=== PATIENT | female | born 1970 | race Two or more races ===

== ENCOUNTER → 2022-11-24 | Outpatient (CLI) | payer OTHER ==
--- NOTE | 2022-11-24 14:10 | MM ---
Reason for Exam: Screening (asymptomatic). Last screening mammogram was performed 12 month(s) ago. Patient History: Menarche at age 10. First Full-Term at age 21. Hysterectomy at age 29. Risk Values: Opal 5 year model risk: 0.9%. NCI Lifetime model risk: 8.8%. Prior Study Comparison: 11/26/2020 Bilateral MG 3D screening mammo w/cad, [facility]. 12/10/2021 Bilateral MG 3D screening mammo w/cad, [facility]. Tissue Density: The breast tissue is almost entirely fat. Findings: Analyzed By CAD. There is no suspicious group of microcalcifications or new suspicious mass in either breast. Overall Assessment: Negative, BI-RAD 1 Management: Screening Mammogram of both breasts in 1 year. A clinical breast exam by your physician is recommended on an annual basis and results should be correlated with mammographic findings. [facility] will attempt to contact patient to return for supplemental views and ultrasound if indicated. Electronically signed and approved by: Sina Armas DO
== END | disposition home or self-care (01) ==
LOC: RADMAMWWP 13:13
PROVIDERS: ATTEND Family Medicine
DX: Z12.31 Encounter for screening mammogram for malignant neoplasm of breast (principal)
CPT/HCPCS: 77063; 77067

== ENCOUNTER 2023-02-05 09:25 | Inpatient (IN) | payer OTHER ==
[2023-02-05] MEDS ORDERED: ALBUTEROL HFA INHALER INHALATION STA (09:29)
[2023-02-05] MEDS ORDERED: methylPREDNISolone SOD SUCCI 125 MG/2 ML VIAL IV STA (09:29)
--- NOTE | 2023-02-05 09:35 | ED ---
General Adult HPI - General Chief complaint: Shortness of Breath Stated complaint: dyspnea Time Seen by Provider: 02/05/23 09:29 Source: patient, EMS, RN notes reviewed Mode of arrival: EMS Limitations: no limitations - History of Present Illness Initial comments: Patient is a pleasant 52-year-old female presenting to the emergency department with concern for difficulty breathing. Patient does have history of problems following previous covert infection. Patient has been coughing for months, worse the past 3 days. Patient does feel somewhat more short of breath. Patient does have some discomfort only with deep inspiration. Patient denies chest discomfort otherwise. No leg pain or leg swelling. No fever. - Related Data Allergies Allergy/AdvReac Type Severity Reaction Status Date / Time diphenhydramine Allergy Rash/Hives Verified 02/05/23 09:33 [From Benadryl] Sulfa (Sulfonamide Allergy Swelling Verified 02/05/23 09:33 Antibiotics) Review of Systems ROS Statement: Those systems with pertinent positive or pertinent negative responses have been documented in the HPI. ROS Other: All systems not noted in ROS Statement are negative. Constitutional: Denies: fever Eyes: Denies: eye pain ENT: Denies: ear pain Respiratory: Reports: as per HPI, cough, dyspnea Cardiovascular: Denies: chest pain Endocrine: Denies: fatigue Gastrointestinal: Denies: abdominal pain Genitourinary: Denies: dysuria Musculoskeletal: Denies: back pain Skin: Denies: rash Neurological: Denies: weakness Past Medical History Past Medical History: Asthma, Diabetes Mellitus Past Surgical History: Section, Hysterectomy Past Psychological History: No Psychological Hx Reported Smoking Status: Never smoker Past Alcohol Use History: Occasional Past Drug Use History: Marijuana General Exam Limitations: no limitations General appearance: alert, in no apparent distress Head exam: Present: normocephalic Eye exam: Present: normal appearance Neck exam: Present: normal inspection Respiratory exam: Present: wheezes, decreased breath sounds Cardiovascular Exam: Present: regular rate, normal rhythm GI/Abdominal exam: Present: soft. Absent: tenderness Extremities exam: Present: normal inspection. Absent: pedal edema, calf tenderness Neurological exam: Present: alert Psychiatric exam: Present: normal affect, normal mood Skin exam: Present: normal color Course Vital Signs 02/05/23 02/05/23 02/05/23 09:26 10:03 10:37 Temperature 96.9 F L Pulse Rate 95 95 95 Respiratory 18 20 22 Rate Blood Pressure 179/93 147/97 145/92 O2 Sat by Pulse 95 96 95 Oximetry EKG Findings - EKG Results: EKG: interpreted by ASTRIDD (Right bundle-branch block. Prominent T waves.), sinus rhythm, normal axis Medical Decision Making - Medical Decision Making Was pt. sent in by a medical professional or institution (, [facility], MANAGER [employer]FE, urgent care, hospital, or usp...) When possible be specific @ -No Did you speak to anyone other than the patient for history (EMS, parent, family, police, friend...)? What history was obtained from this source @ -EMS helps provide history Did you review nursing and triage notes (agree or disagree)? Why? @ -I reviewed and agree with nursing and triage notes Were old charts reviewed (outside hosp., previous admission, EMS record, old EKG, old radiological studies, urgent care reports/EKG's, usp records)? Report findings @ -No old charts were reviewed Differential Diagnosis (chest pain, altered mental status, abdominal pain women, abdominal pain men, vaginal bleeding, weakness, fever, dyspnea, syncope, headache, dizziness, GI bleed, back pain, seizure, CVA, palpatations, mental health)? @ -Differential Dyspnea: Coronary syndrome, arrhythmia, tamponade, asthma, COPD, pulmonary embolism, pneumonia, pneumothorax, pulmonary effusion, anaphylaxis, diabetic ketoacidosis, flailed chest, pulmonary contusion, diaphragmatic rupture, anemia, neuromuscular, this is not meant to be an all-inclusive list. EKG interpreted by me (3pts min.). @ -As above X-rays interpreted by me (1pt min.). @ -Chest x-ray shows diffuse fluffy pattern CT interpreted by me (1pt min.). @ -None done U/S interpreted by me (1pt. min.). @ -None done What testing was considered but not performed or refused? (CT, X-rays, U/S, labs)? Why? @ -None What meds were considered but not given or refused? Why? @ -None Did you discuss the management of the patient with other professionals (professionals i.e. , [employer]D, MANAGER CAFE, lab, RT, psych nurse, long term care social worker, cement finisher, teacher, promotion officer, foster care case manager)? Give summary @ -Case was discussed with Dr. Howard, covering with [facility], [facility], who will admit covering Dr. Robles. Was smoking cessation discussed for >3mins.? @ -No Was critical care preformed (if so, how long)? @ -No Were there social determinants of health that impacted care today? How? (Homelessness, low income, unemployed, alcoholism, drug addiction, transportation, low edu. Level, literacy, decrease access to med. care, correction, rehab)? @ -No Was there de-escalation of care discussed even if they declined (Discuss DNR or withdrawal of care, Hospice)? DNR status @ -No What co-morbidities impacted this encounter? (DM, HTN, Smoking, COPD, CAD, Cancer, CVA, ARF, Chemo, Hep., AIDS, mental health diagnosis, sleep apnea, morbid obesity)? @ -History of previous COVID-19 infection with history of similar symptoms Was patient admitted / discharged? Hospital course, mention meds given and route, prescriptions, significant lab abnormalities, going to OR and other pertinent info. @ -Patient reevaluated and appears fairly short of breath still. Patient does have continued decreased air exchange and wheezing. Patient will be admitted for IV steroids and continue nebulizers as well as pulmonary consult. Patient believes she has seen Dr. Jimenez in the past. Undiagnosed new problem with uncertain prognosis? @ -No Drug Therapy requiring intensive monitoring for toxicity (Heparin, Nitro, Insulin, Cardizem)? @ -No Were any procedures done? @ -No Diagnosis/symptom? @ -Bronchospasm Acute, or Chronic, or Acute on Chronic? @ -Acute on chronic Uncomplicated (without systemic symptoms) or Complicated (systemic symptoms)? @ -default Side effects of treatment? @ -No Exacerbation, Progression, or Severe Exacerbation? @ -Exacerbation Poses a threat to life or bodily function? How? (Chest pain, [place], [place], pneumonia, PE, COPD, DKA, ARF, appy, cholecystitis, CVA, Diverticulitis, Homicidal, Suicidal, threat to staff... and all critical care pts) @ -No - Lab Data Result diagrams: 02/05/23 09:35 02/05/23 09:35 Lab Results 02/05/23 02/05/23 02/05/23 Range/Units 09:35 09:35 09:35 WBC 5.8 (3.8-10.6) k/uL RBC 4.70 (3.80-5.40) m/uL Hgb 13.0 (11.4-16.0) gm/dL Hct 39.5 (34.0-46.0) % MCV 84.1 (80.0-100.0) fL MCH 27.6 (25.0-35.0) pg MCHC 32.9 (31.0-37.0) g/dL RDW 14.0 (11.5-15.5) % Plt Count 227 (150-450) k/uL MPV 8.5 Neutrophils % 61 % Lymphocytes % 28 % Monocytes % 4 % Eosinophils % 5 % Basophils % 0 % Neutrophils # 3.5 (1.3-7.7) k/uL Lymphocytes # 1.6 (1.0-4.8) k/uL Monocytes # 0.2 (0-1.0) k/uL Eosinophils # 0.3 (0-0.7) k/uL Basophils # 0.0 (0-0.2) k/uL PT 9.9 (9.0-12.0) sec INR 0.9 (<1.2) APTT 24.4 (22.0-30.0) sec D-Dimer 0.42 (<0.60) mg/L FEU Sodium 139 (137-145) mmol/L Potassium 4.1 (3.5-5.1) mmol/L Chloride 108 H (98-107) mmol/L Carbon Dioxide 26 (22-30) mmol/L Anion Gap 5 mmol/L BUN 14 (7-17) mg/dL Creatinine 0.47 L (0.52-1.04) mg/dL Est GFR (CKD-EPI)AfAm >90 (>60 ml/min/1.73 sqM) Est GFR (CKD-EPI)NonAf >90 (>60 ml/min/1.73 sqM) Glucose 144 H (74-99) mg/dL Plasma Lactic Acid Jorge (0.7-2.0) mmol/L Calcium 8.7 (8.4-10.2) mg/dL Total Bilirubin 0.7 (0.2-1.3) mg/dL AST 25 (14-36) U/L ALT 30 (4-34) U/L Alkaline Phosphatase 77 (38-126) U/L Troponin I (0.000-0.034) ng/mL NT-Pro-B Natriuret Pep pg/mL Total Protein 7.3 (6.3-8.2) g/dL Albumin 3.5 (3.5-5.0) g/dL Influenza Type A (PCR) (Not Detectd) Influenza Type B (PCR) (Not Detectd) RSV (PCR) (Not Detectd) SARS-CoV-2 (PCR) (Not Detectd) 02/05/23 02/05/23 02/05/23 Range/Units 09:35 09:35 09:35 WBC (3.8-10.6) k/uL RBC (3.80-5.40) m/uL Hgb (11.4-16.0) gm/dL Hct (34.0-46.0) % MCV (80.0-100.0) fL MCH (25.0-35.0) pg MCHC (31.0-37.0) g/dL RDW (11.5-15.5) % Plt Count (150-450) k/uL MPV Neutrophils % % Lymphocytes % % Monocytes % % Eosinophils % % Basophils % % Neutrophils # (1.3-7.7) k/uL Lymphocytes # (1.0-4.8) k/uL Monocytes # (0-1.0) k/uL Eosinophils # (0-0.7) k/uL Basophils # (0-0.2) k/uL PT (9.0-12.0) sec INR (<1.2) APTT (22.0-30.0) sec D-Dimer (<0.60) mg/L FEU Sodium (137-145) mmol/L Potassium (3.5-5.1) mmol/L Chloride (98-107) mmol/L Carbon Dioxide (22-30) mmol/L Anion Gap mmol/L BUN (7-17) mg/dL Creatinine (0.52-1.04) mg/dL Est GFR (CKD-EPI)AfAm (>60 ml/min/1.73 sqM) Est GFR (CKD-EPI)NonAf (>60 ml/min/1.73 sqM) Glucose (74-99) mg/dL Plasma Lactic Acid Jorge 0.9 (0.7-2.0) mmol/L Calcium (8.4-10.2) mg/dL Total Bilirubin (0.2-1.3) mg/dL AST (14-36) U/L ALT (4-34) U/L Alkaline Phosphatase (38-126) U/L Troponin I <0.012 (0.000-0.034) ng/mL NT-Pro-B Natriuret Pep 77 pg/mL Total Protein (6.3-8.2) g/dL Albumin (3.5-5.0) g/dL Influenza Type A (PCR) (Not Detectd) Influenza Type B (PCR) (Not Detectd) RSV (PCR) (Not Detectd) SARS-CoV-2 (PCR) (Not Detectd) 02/05/23 Range/Units 09:35 WBC (3.8-10.6) k/uL RBC (3.80-5.40) m/uL Hgb (11.4-16.0) gm/dL Hct (34.0-46.0) % MCV (80.0-100.0) fL MCH (25.0-35.0) pg MCHC (31.0-37.0) g/dL RDW (11.5-15.5) % Plt Count (150-450) k/uL MPV Neutrophils % % Lymphocytes % % Monocytes % % Eosinophils % % Basophils % % Neutrophils # (1.3-7.7) k/uL Lymphocytes # (1.0-4.8) k/uL Monocytes # (0-1.0) k/uL Eosinophils # (0-0.7) k/uL Basophils # (0-0.2) k/uL PT (9.0-12.0) sec INR (<1.2) APTT (22.0-30.0) sec D-Dimer (<0.60) mg/L FEU Sodium (137-145) mmol/L Potassium (3.5-5.1) mmol/L Chloride (98-107) mmol/L Carbon Dioxide (22-30) mmol/L Anion Gap mmol/L BUN (7-17) mg/dL Creatinine (0.52-1.04) mg/dL Est GFR (CKD-EPI)AfAm (>60 ml/min/1.73 sqM) Est GFR (CKD-EPI)NonAf (>60 ml/min/1.73 sqM) Glucose (74-99) mg/dL Plasma Lactic Acid Jorge (0.7-2.0) mmol/L Calcium (8.4-10.2) mg/dL Total Bilirubin (0.2-1.3) mg/dL AST (14-36) U/L ALT (4-34) U/L Alkaline Phosphatase (38-126) U/L Troponin I (0.000-0.034) ng/mL NT-Pro-B Natriuret Pep pg/mL Total Protein (6.3-8.2) g/dL Albumin (3.5-5.0) g/dL Influenza Type A (PCR) Not Detected (Not Detectd) Influenza Type B (PCR) Not Detected (Not Detectd) RSV (PCR) Not Detected (Not Detectd) SARS-CoV-2 (PCR) Not Detected (Not Detectd) Disposition Clinical Impression: Bronchospasm Disposition: ADMITTED IP TO THIS HOSP Is patient prescribed a controlled substance at d/c from ED?: No Referrals: Eb Robles MD [Primary Care Provider] - 1-2 days Time of Disposition: 11:23
[2023-02-05 09:52] LABS: Basophils % (A) 0 %; Eosinophils # (A) 0.3 k/uL (0-0.7); Eosinophils % (A) 5 %; HCT 39.5 % (34.0-46.0); Lymphocytes # (A) 1.6 k/uL (1.0-4.8); Lymphocytes % (A) 28 %; MCH 27.6 pg (25.0-35.0); MCHC 32.9 g/dL (31.0-37.0); MCV 84.1 fL (80.0-100.0); Mean Platelet Volume 8.5; Monocytes # (A) 0.2 k/uL (0-1.0); Monocytes % (A) 4 %; Neutrophils # (A) 3.5 k/uL (1.3-7.7); Neutrophils % (A) 61 %; Platelet Count 227 k/uL (150-450); WBC 5.8 k/uL (3.8-10.6)
--- NOTE | 2023-02-05 10:00 | XR ---
EXAMINATION TYPE: XR chest 2V DATE OF EXAM: 02/05/2023 9:52 AM COMPARISON: None TECHNIQUE: XR chest 2V Frontal and lateral views of the chest. CLINICAL INDICATION:Female, 52 years old with history of difficulty breathing; FINDINGS: Lungs/Pleura: There is no evidence of pleural effusion, focal consolidation, or pneumothorax. Pulmonary vascularity: Pulmonary vascular congestion. Heart/mediastinum: Cardiomediastinal silhouette is enlarged. Musculoskeletal: No acute osseous pathology. IMPRESSION: Cardiomegaly and mild pulmonary vascular congestion. Correlate with BNP for congestive heart failure.
[2023-02-05 10:03] LABS: ALT 30 U/L (4-34); AST 25 U/L (14-36); African American GFR (CKD) >90 (>60 ml/min/1.73 sqM); Albumin 3.5 g/dL (3.5-5.0); Alkaline Phosphatase 77 U/L (38-126); Anion Gap 5 mmol/L; Blood Urea Nitrogen 14 mg/dL (7-17); Calcium 8.7 mg/dL (8.4-10.2); Carbon Dioxide 26 mmol/L (22-30); Chloride 108 mmol/L (98-107); Glucose 144 mg/dL (74-99); Non-African American GFR(CKD) >90 (>60 ml/min/1.73 sqM); Potassium 4.1 mmol/L (3.5-5.1); Sodium 139 mmol/L (137-145); Total Bilirubin 0.7 mg/dL (0.2-1.3); Total Protein 7.3 g/dL (6.3-8.2)
[2023-02-05 10:22] LABS: INR 0.9 (<1.2); Partial Thromboplastin Time 24.4 sec (22.0-30.0); Prothrombin Time 9.9 sec (9.0-12.0)
[2023-02-05] MEDS ORDERED: IPRATROPIUM-ALBUTEROL 3 ML NEB INHALATION STA (10:48)
[2023-02-05] MEDS ORDERED: HYDROmorphone 1 MG/ML 1 ML SYRINGE IVP STA (11:12)
[2023-02-05] MEDS ORDERED: NALOXONE 0.4 MG/ML 1 ML VIAL IVP PRN (11:24)
[2023-02-05] MEDS ORDERED: IPRATROPIUM-ALBUTEROL 3 ML NEB INHALATION PRN (11:29)
[2023-02-05] MEDS ORDERED: ACETAMINOPHEN TAB 325 MG TAB PO PRN (11:29)
[2023-02-05] MEDS: methylPREDNISolone SOD SUCCI 125 MG/2 ML VIAL IV SCH ×2 (12:24→17:31)
--- NOTE | 2023-02-05 12:54 | P.CNPUL ---
History of Present Illness Consult date: 02/05/23 Requesting physician: Carlos Garner Reason for consult: asthma Chief complaint: Shortness of breath, cough, congestion History of present illness: This is a very pleasant morbidly obese female patient with a known history of mild intermittent chronic bronchial asthma, diabetes mellitus, nonsmoker. She did have COVID-19 infection back in 2020 and since that time she had had ongoing issues with occasional cough and asthma exacerbations. The past week she had developed increasing shortness of breath cough and congestion. She was seen by her PCP on Tuesday who was in the process of doing further workup including a cardiac workup. She ended up coming to the emergency room today with worsening shortness of breath chest tightness and shortness of breath. Chest x-ray reveals evidence of cardiomegaly and some mild pulmonary vascular congestion. Some possible atelectatic changes in the right base. No pleural effusion. No focal consolidation. No pneumothorax. White count 5.8. Hemoglobin 13.0. Platelets 227. D-dimer 0.42. Sodium 139. Potassium 4.1. Bicarb 26. BUN 14. Creatinine 0.47. Glucose 144. AST 25. ALT 30. Troponin negative times one. ProBNP 5077. Influenza screen negative. RSV screen negative. COVID-19 screen negative. She is seen today in consultation on the regular medical floor. Currently sitting up in bed. Awake and alert in no acute distress. She is still quite bronchospastic and wheezing. Cough initiated with deep inhalation. Continue good O2 saturations in the mid 90s on 3 L/m per nasal cannula. Afebrile. Hemodynamically stable. Initiated on DuoNeb inhalations, IV Solu- Medrol. Review of Systems REVIEW OF SYSTEMS: CONSTITUTIONAL: Denies any recent significant weight loss or weight gain. EYES: Denies change in vision. EARS, NOSE, MOUTH, THROAT: Denies headaches, denies sore throat. CARDIOVASCULAR: Denies chest pain, palpitations or syncopal episodes. RESPIRATORY: Positive for shortness of breath, cough, congestion no hemoptysis. GASTROINTESTINAL: Denies change in appetite, denies abdominal pain GENITOURINARY: Denies hematuria, denies infections. MUSKULOSKELETAL: Denies pain, denies swelling. INTEGUMENTARY: Denies rash, denies eczema. NEUROLOGICAL: Denies recent memory loss, no recent seizure activity. PSYCHIATRIC: Denies anxiety, denies depression. HEMATOLOGIC/LYMPHATIC: Denies anemia, denies enlarged lymph nodes. Past Medical History Past Medical History: Asthma, Diabetes Mellitus History of Any Multi-Drug Resistant Organisms: None Reported Past Surgical History: Section, Hysterectomy Past Psychological History: No Psychological Hx Reported Smoking Status: Never smoker Past Alcohol Use History: Occasional Past Drug Use History: Marijuana Medications and Allergies Allergies Allergy/AdvReac Type Severity Reaction Status Date / Time diphenhydramine Allergy Rash/Hives Verified 02/05/23 09:33 [From Benadryl] Sulfa (Sulfonamide Allergy Swelling Verified 02/05/23 09:33 Antibiotics) Physical Exam Vitals: Vital Signs Temp Pulse Pulse Resp BP BP Pulse Ox 02/05/23 12:07 97.3 F L 97 22 107/65 99 02/05/23 11:22 98 18 153/96 96 02/05/23 11:02 92 02/05/23 10:51 88 02/05/23 10:37 95 22 145/92 95 02/05/23 10:03 95 20 147/97 96 02/05/23 09:26 96.9 F L 95 18 179/93 95 Intake and Output 02/04/23 02/05/23 02/05/23 22:59 06:59 14:59 Other: Weight 146.964 kg GENERAL EXAM: Alert, very pleasant 52-year-old morbidly obese female, on 3 L nasal cannula, fairly comfortable in no apparent distress. HEAD: Normocephalic. EYES: Normal reaction of pupils, equal size. NOSE: Clear with pink turbinates. THROAT: No erythema or exudates. NECK: No masses, no JVD. CHEST: No chest wall deformity. LUNGS: Equal air entry with bilateral end expiratory wheeze, diminished. CVS: S1 and S2 normal with no audible murmur, regular rhythm. ABDOMEN: No hepatosplenomegaly, normal bowel sounds, no guarding or rigidity. SPINE: No scoliosis or deformity SKIN: No rashes CENTRAL NERVOUS SYSTEM: No focal deficits, tone is normal in all 4 extremities. EXTREMITIES: There is no peripheral edema. No clubbing, no cyanosis. Peripheral pulses are intact. Results - Laboratory Findings CBC and BMP: 02/05/23 09:35 02/05/23 09:35 PT/INR, D-dimer PT 9.9 sec (9.0-12.0) 02/05/23 09:35 INR 0.9 (<1.2) 02/05/23 09:35 D-Dimer 0.42 mg/L FEU (<0.60) 02/05/23 09:35 Abnormal lab findings: Abnormal Labs 02/05/23 09:35 Chloride 108 H Creatinine 0.47 L Glucose 144 H - Diagnostic Findings Chest x-ray: image reviewed Assessment and Plan Assessment: Acute exacerbation of chronic mild intermittent bronchial asthma Acute hypoxemic respiratory failure secondary to above Lifelong nonsmoker Morbid obesity with a BMI of 57.4 kg/m Diabetes mellitus History of COVID-19 infection in 2020 Plan: The patient was seen and evaluated Chest x-ray, labs and medications reviewed Continue DuoNeb inhalations, IV Solu-Medrol Add some Pulmicort and Perforomist inhalations Check a pro-calcitonin Titrate the FiO2 as tolerated Would benefit from outpatient pulmonary function testing to evaluate severity of her asthma We will continue to follow and make further recommendations based on her clinical status I have personally seen and examined the patient, performed the documentation and the assessment and plan as written. Number of minutes spent on the visit: 20.
[2023-02-05] MEDS: IPRATROPIUM-ALBUTEROL 3 ML NEB INHALATION SCH ×3 (13:26→20:39)
[2023-02-05] MEDS ORDERED: ONDANSETRON 4 MG/2 ML VIAL IVP PRN (14:03)
--- NOTE | 2023-02-05 14:17 | P.HPIM ---
History of Present Illness H&P Date: 02/05/23 52-year-old female with PMH of asthma, dyslipidemia, hypertension, diabetes mellitus presents the ED for worsening shortness of breath and left-sided pleuritic back pain since Tuesday. Patient reports asthma flareups since being diagnosed with COVID-19 in 2020. She attempted to use her nebulizer which did not help her symptoms. This prompted her to come to the ED. She denies any headache, lower extremity edema, nausea vomiting, fever or chills, chest pain, palpitations, changes in urination or bowel habits. No changes in appetite or weight. She denies any dizziness, numbness/weakness/tingling of the extremities. In the ED, she was noted to be tachycardic with heart rate in the 90s requiring 3 L cannula to maintain O2 saturation greater than 92%. CBC was unremarkable. Coagulation panel was negative. D-dimer 0.42. CMP showed chloride 108, creatinine of 0.47 and glucose 144. Lactic acid was negative. Troponin was negative. BNP was 77. Influenza, COVID-19 and RSV negative. EKG showed sinus rhythm with right bundle branch block, ventricular rate of 94. Chest x-ray show cardiomegaly and mild pulmonary vascular congestion. Patient is admitted for asthma exacerbation with pulmonology consultation. Pertinent positives and negatives as discussed in HPI, a complete review of systems was performed and all other systems are negative. General: non toxic, no distress, appears at stated age, morbidly obese Derm: warm, dry Head: atraumatic, normocephalic, symmetric Eyes: EOMI, no lid lag, anicteric sclera Mouth: no lip lesion, mucus membranes moist Cardiovascular: S1S2 reg, no murmur Lungs: Diffuse wheezing bilateral, no rhonchi, no rales , no accessory muscle use Ext: no gross muscle atrophy, no edema, no contractures Neuro: no focal neuro deficits Psych: Alert, oriented, appropriate affect Acute hypoxic respiratory failure Asthma exacerbation Chronic conditions: Dyslipidemia, hypertension, diabetes mellitus Based on my assessment of this patient, this patient meets a high complexity level of care. I have reviewed the following design center consultant notes: None. I have reviewed the results of the following tests: CBC was unremarkable. Coagulation panel was negative. D-dimer 0.42. CMP showed chloride 108, creatinine of 0.47 and glucose 144. Lactic acid was n egative. Troponin was negative. BNP was 77. Influenza, COVID-19 and RSV negative. Chest x-ray show cardiomegaly and mild pulmonary vascular congestion. I have ordered the following tests: None. I have discussed the care of this patient with the following independent historian: None. I have independently interpreted the following test below: EKG showed sinus rhythm with right bundle branch block, ventricular rate of 94. I have discussed the management of this patient with the following physician: The case was discussed with the ED physician and decision made to admit the patient for asthma exacerbation and pulmonology consultation. This patient has a high risk of morbidity due to the following reasons: Patient has a history of asthma with severe exacerbation or progression of dise ase which poses a threat to life or bodily function. She is currently on 3 L nasal cannula. She has diffuse wheezing bilaterally. Patient be started on DuoNeb scheduled and as needed for shortness of breath and wheezing. She will be started on Solu-Medrol 60 mg IV every 6 hours. Supplemental O2 to maintain O2 saturation greater than 92%. Telemetry monitoring as ordered. Pulmonology has been consulted for further management of this patient. Low-dose sliding scale for history of diabetes mellitus. Restart Lipitor 10 mg by mouth at bedtime for history of dyslipidemia. Restart losartan 100 mg by mouth daily for history of hypertension. Patient names her mother decision maker if she can't make decisions for herself. Patient would like to be full code. Lovenox for DVT prophylaxis Past Medical History Past Medical History: Asthma, Diabetes Mellitus History of Any Multi-Drug Resistant Organisms: None Reported Past Surgical History: Section, Hysterectomy Past Psychological History: No Psychological Hx Reported Smoking Status: Never smoker Past Alcohol Use History: Occasional Past Drug Use History: Marijuana Medications and Allergies Allergies Allergy/AdvReac Type Severity Reaction Status Date / Time diphenhydramine Allergy Rash/Hives Verified 02/05/23 09:33 [From Benadryl] Sulfa (Sulfonamide Allergy Swelling Verified 02/05/23 09:33 Antibiotics) Physical Exam Vitals: Vital Signs Temp Pulse Pulse Resp BP BP Pulse Ox 02/05/23 12:07 97.3 F L 97 22 107/65 99 02/05/23 11:22 98 18 153/96 96 02/05/23 11:02 92 02/05/23 10:51 88 02/05/23 10:37 95 22 145/92 95 02/05/23 10:03 95 20 147/97 96 02/05/23 09:26 96.9 F L 95 18 179/93 95 Intake and Output 02/04/23 02/05/23 02/05/23 22:59 06:59 14:59 Other: Weight 146.964 kg Results CBC & Chem 7: 02/05/23 09:35 02/05/23 09:35 Labs: Abnormal Lab Results - Last 24 Hours (Table) 02/05/23 Range/Units 09:35 Chloride 108 H (98-107) mmol/L Creatinine 0.47 L (0.52-1.04) mg/dL Glucose 144 H (74-99) mg/dL
[2023-02-05 17:17] LABS: Glucose,Whole Blood 241 mg/dL (70-110)
[2023-02-05] MEDS: INSULIN ASPART (NovoLOG) 100 UNIT/ML VIAL SQ SCH ×2 (17:31→20:27)
[2023-02-05 19:33] LABS: Glucose,Whole Blood 230 mg/dL (70-110)
[2023-02-05] MEDS: HYDROcodone/APAP 5-325MG 1 EACH TAB PO PRN (20:15)
[2023-02-05] MEDS: ATORVASTATIN 10 MG TAB PO SCH (20:15)
[2023-02-05] MEDS: FORMOTEROL FUMARATE 20 MCG/2 ML NEBU INHALATION SCH (20:39)
[2023-02-05] MEDS: BUDESONIDE 1 MG/2 ML NEBU INHALATION SCH (20:39)
[2023-02-06] MEDS: methylPREDNISolone SOD SUCCI 125 MG/2 ML VIAL IV SCH ×4 (00:35→17:31)
[2023-02-06 06:15] LABS: Glucose,Whole Blood 227 mg/dL (70-110)
[2023-02-06] MEDS: INSULIN ASPART (NovoLOG) 100 UNIT/ML VIAL SQ SCH ×4 (06:37→21:22)
[2023-02-06] MEDS: FORMOTEROL FUMARATE 20 MCG/2 ML NEBU INHALATION SCH ×2 (07:36→20:28)
[2023-02-06] MEDS: IPRATROPIUM-ALBUTEROL 3 ML NEB INHALATION SCH ×4 (07:36→20:28)
[2023-02-06] MEDS: BUDESONIDE 1 MG/2 ML NEBU INHALATION SCH ×2 (07:36→20:28)
--- NOTE | 2023-02-06 08:12 | P.PN ---
Subjective Progress Note Date: 02/06/23 This is a very pleasant morbidly obese female patient with a known history of mild intermittent chronic bronchial asthma, diabetes mellitus, nonsmoker. She did have COVID-19 infection back in 2020 and since that time she had had ongoing issues with occasional cough and asthma exacerbations. The past week she had developed increasing shortness of breath cough and congestion. She was seen by her PCP on Tuesday who was in the process of doing further workup including a cardiac workup. She ended up coming to the emergency room today with worsening shortness of breath chest tightness and shortness of breath. Chest x-ray reveals evidence of cardiomegaly and some mild pulmonary vascular congestion. Some possible atelectatic changes in the right base. No pleural effusion. No focal consolidation. No pneumothorax. White count 5.8. Hemoglobin 13.0. Platelets 227. D-dimer 0.42. Sodium 139. Potassium 4.1. Bicarb 26. BUN 14. Creatinine 0.47. Glucose 144. AST 25. ALT 30. Troponin negative times one. ProBNP 5077. Influenza screen negative. RSV screen negative. COVID-19 screen negative. She is seen today in consultation on the regular medical floor. Currently sitting up in bed. Awake and alert in no acute distress. She is still quite bronchospastic and wheezing. Cough initiated with deep inhalation. Continue good O2 saturations in the mid 90s on 3 L/m per nasal cannula. Afebrile. Hemodynamically stable. Initiated on DuoNeb inhalations, IV Solu- Medrol. The patient is seen today 02/06/2023 in follow-up on the regular medical floor. She is currently sitting up in a chair at the bedside. Awake and alert in no acute distress. Doing about the same today as compared to yesterday. No significant improvement. Still quite bronchospastic and wheezy. 18 in good O2 saturations in the 90s. She's afebrile. Hemodynamically stable. Continued on DuoNeb inhalations, Pulmicort and Perforomist inhalations, IV Solu-Medrol. Pro- calcitonin pending. Glucose 227. Objective - Vital Signs Vital signs: Vital Signs Temp 97.6 F 02/06/23 00:33 Pulse 92 02/06/23 07:59 Resp 20 02/05/23 15:00 BP 127/78 02/06/23 00:33 Pulse Ox 96 02/06/23 00:33 FiO2 Intake & Output 02/05/23 02/06/23 02/06/23 18:59 06:59 18:59 Intake Total 236 Balance 236 Weight 146.964 kg Intake: Oral 236 Other: # Voids 1 - Exam GENERAL EXAM: Alert, pleasant 52-year-old morbidly obese female, up in a chair at the bedside, on 2 L nasal cannula, fairly comfortable in no apparent distress. HEAD: Normocephalic. EYES: Normal reaction of pupils, equal size. NOSE: Clear with pink turbinates. THROAT: No erythema or exudates. NECK: No masses, no JVD. CHEST: No chest wall deformity. LUNGS: Equal air entry with bilateral end expiratory wheeze, diminished. CVS: S1 and S2 normal with no audible murmur, regular rhythm. ABDOMEN: No hepatosplenomegaly, normal bowel sounds, no guarding or rigidity. SPINE: No scoliosis or deformity SKIN: No rashes CENTRAL NERVOUS SYSTEM: No focal deficits, tone is normal in all 4 extremities. EXTREMITIES: There is no peripheral edema. No clubbing, no cyanosis. Peripheral pulses are intact. - Labs CBC & Chem 7: 02/05/23 09:35 02/05/23 09:35 Labs: Abnormal Lab Results - Last 24 Hours (Table) 02/05/23 02/05/23 02/05/23 Range/Units 09:35 17:15 19:32 Chloride 108 H (98-107) mmol/L Creatinine 0.47 L (0.52-1.04) mg/dL Glucose 144 H (74-99) mg/dL POC Glucose (mg/dL) 241 H 230 H (70-110) mg/dL 02/06/23 Range/Units 06:14 Chloride (98-107) mmol/L Creatinine (0.52-1.04) mg/dL Glucose (74-99) mg/dL POC Glucose (mg/dL) 227 H (70-110) mg/dL Assessment and Plan Assessment: Acute exacerbation of chronic mild intermittent bronchial asthma Acute hypoxemic respiratory failure secondary to above Lifelong nonsmoker Morbid obesity with a BMI of 57.4 kg/m Diabetes mellitus History of COVID-19 infection in 2020 Plan: The patient was seen and evaluated Medications reviewed Continue DuoNeb inhalations, IV Solu-Medrol Continue Pulmicort and Perforomist inhalations Pro-calcitonin pending Titrate the FiO2 as tolerated Outpatient pulmonary function testing We will continue to follow I have personally seen and examined the patient, performed the documentation and the assessment and plan as written. Number of minutes spent on the visit: 10
[2023-02-06] MEDS: ENOXAPARIN 40 MG/0.4 ML SYRINGE SQ SCH (08:37)
[2023-02-06] MEDS: LOSARTAN 50 MG TAB PO SCH (08:37)
[2023-02-06] MEDS: HYDROcodone/APAP 5-325MG 1 EACH TAB PO PRN (08:37)
[2023-02-06] MEDS: PARoxetine 10 MG TAB PO SCH (08:38)
[2023-02-06 12:19] LABS: Glucose,Whole Blood 337 mg/dL (70-110)
--- NOTE | 2023-02-06 14:12 | P.PN ---
Subjective Progress Note Date: 02/06/23 52-year-old female with PMH of asthma, dyslipidemia, hypertension, diabetes mellitus presents the ED for worsening shortness of breath and left-sided pleuritic back pain since Tuesday. Patient reports asthma flareups since being diagnosed with COVID-19 in 2020. She attempted to use her nebulizer which did not help her symptoms. This prompted her to come to the ED. She denies any headache, lower extremity edema, nausea vomiting, fever or chills, chest pain, palpitations, changes in urination or bowel habits. No changes in appetite or weight. She denies any dizziness, numbness/weakness/tingling of the extremities. In the ED, she was noted to be tachycardic with heart rate in the 90s requiring 3 L cannula to maintain O2 saturation greater than 92%. CBC was unremarkable. Coagulation panel was negative. D-dimer 0.42. CMP showed chloride 108, creatinine of 0.47 and glucose 144. Lactic acid was negative. Troponin was negative. BNP was 77. Influenza, COVID-19 and RSV negative. EKG showed sinus rhythm with right bundle branch block, ventricular rate of 94. Chest x-ray show cardiomegaly and mild pulmonary vascular congestion. Patient is admitted for asthma exacerbation with pulmonology consultation. Patient was seen and examined. No acute events overnight. Patient reports sl ight improvement in her breathing. She continues to report a dry cough and exertional dyspnea. General: non toxic, no distress, appears at stated age, morbidly obese Derm: warm, dry Head: atraumatic, normocephalic, symmetric Eyes: EOMI, no lid lag, anicteric sclera Mouth: no lip lesion, mucus membranes moist Cardiovascular: S1S2 reg, no murmur Lungs: Diffuse wheezing bilateral, no rhonchi, no rales , no accessory muscle use Ext: no gross muscle atrophy, no edema, no contractures Neuro: no focal neuro deficits Psych: Alert, oriented, appropriate affect Acute hypoxic respiratory failure Asthma exacerbation Diabetes mellitus with hyperglycemia Chronic conditions: Dyslipidemia, hypertension Based on my assessment of this patient, this patient meets a moderate complexity level of care. I have reviewed the following workforce consultant notes: Pulmonology note 02/06, continue bronchodilators, IV Solu-Medrol. I have reviewed the results of the following tests: [id number] glucose ranging from 227-337 over the past 24 hours. Pro-calcitonin elevated 0.14. I have ordered the following tests: None. I have discussed the care of this patient with the following independent historian: None. I have independently interpreted the following test below: None. I have discussed the management of this patient with the following physician: None. This patient has a moderate risk of morbidity due to the following reasons: Patient has a history of asthma with severe exacerbation or progression of disease which poses a threat to life or bodily function. She is currently on 3 L nasal cannula. She has diffuse wheezing bilaterally. Patient be continued on DuoNeb scheduled and as needed for shortness of breath and wheezing. She will be continued on Solu-Medrol 60 mg IV every 6 hours. Supplemental O2 to maintain O2 saturation greater than 92%. Telemetry monitoring as ordered. Pulmonology has been consulted for further management of this patient. Switch to medium sliding scale for history of diabetes mellitus. Restart Lipitor 10 mg by mouth at bedtime for history of dyslipidemia. Restart losartan 100 mg by mouth daily for history of hypertension. Patient names her mother decision maker if she can't make decisions for herself. Patient would like to be full code. Lovenox for DVT prophylaxis Objective - Vital Signs Vital signs: Vital Signs Temp 98.0 F 02/06/23 07:00 Pulse 92 02/06/23 11:34 Resp 20 02/06/23 07:00 BP 145/80 02/06/23 07:00 Pulse Ox 95 02/06/23 07:00 FiO2 Intake & Output 02/05/23 02/06/23 02/06/23 18:59 06:59 18:59 Intake Total 236 118 Balance 236 118 Weight 146.964 kg Intake: Oral 236 118 Other: # Voids 1 - Labs CBC & Chem 7: 02/05/23 09:35 02/05/23 09:35 Labs: Abnormal Lab Results - Last 24 Hours (Table) 02/05/23 02/05/23 02/05/23 Range/Units 09:35 17:15 19:32 POC Glucose (mg/dL) 241 H 230 H (70-110) mg/dL Procalcitonin 0.14 H (0.02-0.09) ng/mL 02/06/23 02/06/23 Range/Units 06:14 12:17 POC Glucose (mg/dL) 227 H 337 H (70-110) mg/dL Procalcitonin (0.02-0.09) ng/mL
[2023-02-06 17:26] LABS: Glucose,Whole Blood 324 mg/dL (70-110)
[2023-02-06 20:26] LABS: Glucose,Whole Blood 337 mg/dL (70-110)
[2023-02-06] MEDS: ATORVASTATIN 10 MG TAB PO SCH (21:22)
[2023-02-07] MEDS: methylPREDNISolone SOD SUCCI 125 MG/2 ML VIAL IV SCH ×5 (00:52→18:38)
--- NOTE | 2023-02-07 05:17 | P.PN ---
Subjective Progress Note Date: 02/07/23 Principal diagnosis: Asthma exacerbation This is a very pleasant morbidly obese female patient with a known history of mild intermittent chronic bronchial asthma, diabetes mellitus, nonsmoker. She did have COVID-19 infection back in 2020 and since that time she had had ongoing issues with occasional cough and asthma exacerbations. The past week she had developed increasing shortness of breath cough and congestion. She was seen by her PCP on Tuesday who was in the process of doing further workup including a cardiac workup. She ended up coming to the emergency room today with worsening shortness of breath chest tightness and shortness of breath. Chest x-ray reveals evidence of cardiomegaly and some mild pulmonary vascular congestion. Some possible atelectatic changes in the right base. No pleural effusion. No focal consolidation. No pneumothorax. White count 5.8. Hemoglobin 13.0. Platelets 227. D-dimer 0.42. Sodium 139. Potassium 4.1. Bicarb 26. BUN 14. Creatinine 0.47. Glucose 144. AST 25. ALT 30. Troponin negative times one. ProBNP 5077. Influenza screen negative. RSV screen negative. COVID-19 screen negative. She is seen today in consultation on the regular medical floor. Currently sitting up in bed. Awake and alert in no acute distress. She is still quite bronchospastic and wheezing. Cough initiated with deep inhalation. Continue good O2 saturations in the mid 90s on 3 L/m per nasal cannula. Afebrile. Hemodynamically stable. Initiated on DuoNeb inhalations, IV Solu- Medrol. The patient is seen today 02/06/2023 in follow-up on the regular medical floor. She is currently sitting up in a chair at the bedside. Awake and alert in no acute distress. Doing about the same today as compared to yesterday. No significant improvement. Still quite bronchospastic and wheezy. 18 in good O2 saturations in the 90s. She's afebrile. Hemodynamically stable. Continued on DuoNeb inhalations, Pulmicort and Perforomist inhalations, IV Solu-Medrol. Pro- calcitonin pending. Glucose 227. I'm evaluating this patient today 02/07/2023 in follow-up on the regular medical floor. Patient is currently resting in bed, on 2 L nasal cannula, in no acute distress. She is still bronchospastic. She continues to be maximized on bronchodilators, budesonide and formoterol inhalation, and IV Solu-Medrol. No new chest x-ray to review today. No new labs today. Procalcitonin level came back only mildly elevated at 0.14. She remains afebrile. Vital signs are stable. Objective - Vital Signs Vital signs: Vital Signs Temp 97.6 F 02/07/23 02:04 Pulse 101 H 02/07/23 02:04 Resp 16 02/07/23 02:04 BP 149/94 02/07/23 02:04 Pulse Ox 98 02/07/23 02:04 FiO2 Intake & Output 02/06/23 02/06/23 02/07/23 06:59 18:59 06:59 Intake Total 354 Balance 354 Intake: Oral 354 Other: Voiding Method Toilet # Voids 1 5 2 # Bowel Movements 1 - Exam GENERAL EXAM: Alert, morbidly obese -[place] Citizen female, comfortable in no apparent distress. HEAD: Normocephalic and atraumatic EYES: Normal reaction of pupils, equal size. NOSE: Clear with pink turbinates. THROAT: No erythema or exudates. NECK: No masses, no JVD. CHEST: No chest wall deformity. LUNGS: Equal air entry with expiratory wheezes heard throughout. no crackles, rhonchi or dullness. On 2 L nasal cannula. No conversational dyspnea or accessory muscle use.. CVS: S1 and S2 normal with no audible murmur, regular rhythm. No extra heart sounds ABDOMEN: No hepatosplenomegaly, active bowel sounds, no guarding or rigidity. SPINE: No scoliosis or deformity SKIN: No rashes CENTRAL NERVOUS SYSTEM: No focal deficits, tone is normal in all 4 extremities. EXTREMITIES: There is no peripheral edema, clubbing, or cyanosis. Peripheral pulses are intact. - Labs CBC & Chem 7: 02/05/23 09:35 02/05/23 09:35 Labs: Abnormal Lab Results - Last 24 Hours (Table) 02/05/23 02/06/23 02/06/23 Range/Units 09:35 06:14 12:17 POC Glucose (mg/dL) 227 H 337 H (70-110) mg/dL Procalcitonin 0.14 H (0.02-0.09) ng/mL 02/06/23 02/06/23 Range/Units 17:25 20:24 POC Glucose (mg/dL) 324 H 337 H (70-110) mg/dL Procalcitonin (0.02-0.09) ng/mL Assessment and Plan Assessment: Acute exacerbation of chronic mild intermittent bronchial asthma Acute hypoxemic respiratory failure secondary to above Lifelong nonsmoker Morbid obesity with a BMI of 57.4 kg/m Diabetes mellitus History of COVID-19 infection in 2020 Plan: The patient was seen and evaluated Continue current treatment Procalcitonin level was low at 0.14 Titrate the FiO2 as tolerated Outpatient pulmonary function testing when ready We will continue to follow I have personally seen and examined the patient, performed the documentation and the assessment and plan as written. Number of minutes spent on the visit: 10 Time with Patient: Less than 30
[2023-02-07 05:44] LABS: Glucose,Whole Blood 291 mg/dL (70-110)
[2023-02-07] MEDS: INSULIN ASPART (NovoLOG) 100 UNIT/ML VIAL SQ SCH ×7 (05:56→22:31)
[2023-02-07] MEDS: FORMOTEROL FUMARATE 20 MCG/2 ML NEBU INHALATION SCH ×2 (07:49→19:31)
[2023-02-07] MEDS: BUDESONIDE 1 MG/2 ML NEBU INHALATION SCH ×2 (07:49→19:31)
[2023-02-07] MEDS: IPRATROPIUM-ALBUTEROL 3 ML NEB INHALATION SCH ×4 (07:49→19:31)
[2023-02-07] MEDS: ENOXAPARIN 40 MG/0.4 ML SYRINGE SQ SCH (08:30)
[2023-02-07] MEDS: LOSARTAN 50 MG TAB PO SCH (08:31)
[2023-02-07] MEDS: PARoxetine 10 MG TAB PO SCH (08:31)
[2023-02-07] MEDS: HYDROcodone/APAP 5-325MG 1 EACH TAB PO PRN (08:55)
[2023-02-07] MEDS ORDERED: KETOROLAC 15 MG/ML 1 ML VIAL IVP STA (10:19)
[2023-02-07] MEDS: guaiFENesin 600 MG TABLET.ER PO SCH ×2 (11:08→22:30)
[2023-02-07 11:29] LABS: Glucose,Whole Blood 357 mg/dL (70-110)
--- NOTE | 2023-02-07 12:24 | P.PN ---
Subjective Progress Note Date: 02/07/23 52-year-old female with PMH of asthma, dyslipidemia, hypertension, diabetes mellitus presents the ED for worsening shortness of breath and left-sided pleuritic back pain since Tuesday. Patient reports asthma flareups since being diagnosed with COVID-19 in 2020. She attempted to use her nebulizer which did not help her symptoms. This prompted her to come to the ED. She denies any headache, lower extremity edema, nausea vomiting, fever or chills, chest pain, palpitations, changes in urination or bowel habits. No changes in appetite or weight. She denies any dizziness, numbness/weakness/tingling of the extremities. In the ED, she was noted to be tachycardic with heart rate in the 90s requiring 3 L cannula to maintain O2 saturation greater than 92%. CBC was unremarkable. Coagulation panel was negative. D-dimer 0.42. CMP showed chloride 108, creatinine of 0.47 and glucose 144. Lactic acid was negative. Troponin was negative. BNP was 77. Influenza, COVID-19 and RSV negative. EKG showed sinus rhythm with right bundle branch block, ventricular rate of 94. Chest x-ray show cardiomegaly and mild pulmonary vascular congestion. Patient is admitted for asthma exacerbation with pulmonology consultation. Patient was started on bronchodilators and IV solumedrol. She has been slow to progress. Pulmonology is on board. Patient was seen and examined. No acute events overnight. Patient reports slight improvement in her breathing. She continues to report a wet cough and exertional dyspnea. Unable to bring up sputum. She complains of left sided sharp chest pain when she coughs. General: non toxic, no distress, appears at stated age, morbidly obese Derm: warm, dry Head: atraumatic, normocephalic, symmetric Eyes: EOMI, no lid lag, anicteric sclera Mouth: no lip lesion, mucus membranes moist Cardiovascular: Good distal perfusion in all 4 extremities Lungs: Diffuse wheezing bilateral, no rhonchi, no rales , no accessory muscle use Ext: no gross muscle atrophy, no edema, no contractures Neuro: no focal neuro deficits Psych: Alert, oriented, appropriate affect Acute hypoxic respiratory failure Asthma exacerbation Diabetes mellitus with hyperglycemia Chronic conditions: Dyslipidemia, hypertension Based on my assessment of this patient, this patient meets a moderate complexity level of care. I have reviewed the following solar consultant notes: Pulmonology note 02/07, continue current treatment. I have reviewed the results of the following tests: Tdyqz-nu-spty glucose ranging from 291-357 over the past 24 hours. I have ordered the following tests: None. I have discussed the care of this patient with the following independent historian: None. I have independently interpreted the following test below: None. I have discussed the management of this patient with the following physician: None. This patient has a moderate risk of morbidity due to the following reasons: Patient has a history of asthma with severe exacerbation or progression of disease which poses a threat to life or bodily function. She is currently on room air but she is still bronchospastic. She has diffuse wheezing bilaterally. Patient be continued on DuoNeb scheduled and as needed for shortness of breath and wheezing. She will be continued on Solu-Medrol 60 mg IV every 6 hours. Add Robitussin 1200 mg PO BID. Add Toradol 15 mg IV Q6H PRN for pain. Supplemental O2 to maintain O2 saturation greater than 92%. Telemetry monitoring as ordered. Pulmonology is on board. Start Novolog 5 units TID with Levemir 15 units QHS. Continue medium sliding scale for history of diabetes mellitus. Restart Lipitor 10 mg by mouth at bedtime for history of dyslipidemia. Restart losartan 100 mg by mouth daily for history of hypertension. Patient names her mother decision maker if she can't make decisions for herself. Patient would like to be full code. Lovenox for DVT prophylaxis. She is pending clinical improvement. Anticipate DC in 1-2 days. Objective - Vital Signs Vital signs: Vital Signs Temp 98.1 F 02/07/23 07:00 Pulse 89 02/07/23 11:44 Resp 20 02/07/23 07:00 BP 170/98 02/07/23 07:00 Pulse Ox 95 02/07/23 07:49 FiO2 Intake & Output 02/06/23 02/07/23 02/07/23 18:59 06:59 18:59 Intake Total 354 Balance 354 Intake: Oral 354 Other: Voiding Method Toilet # Voids 5 1 # Bowel Movements 1 - Labs CBC & Chem 7: 02/05/23 09:35 02/05/23 09:35 Labs: Abnormal Lab Results - Last 24 Hours (Table) 04/02/06/23 02/06/23 Range/Units 12:17 17:25 20:24 POC Glucose (mg/dL) 337 H 324 H 337 H (70-110) mg/dL 02/07/23 02/07/23 Range/Units 05:40 11:20 POC Glucose (mg/dL) 291 H 357 H (70-110) mg/dL
[2023-02-07 17:41] LABS: Glucose,Whole Blood 317 mg/dL (70-110)
[2023-02-07] MEDS: KETOROLAC 15 MG/ML 1 ML VIAL IVP SCH ×2 (18:38→22:32)
[2023-02-07 20:02] LABS: Glucose,Whole Blood 306 mg/dL (70-110)
[2023-02-07] MEDS ORDERED: INSULIN DETEMIR (LEVEMIR) 100 UNIT/ML SYR SQ SCH (21:00)
[2023-02-07] MEDS: ATORVASTATIN 10 MG TAB PO SCH (22:31)
[2023-02-08 06:06] LABS: Glucose,Whole Blood 162 mg/dL (70-110)
[2023-02-08] MEDS: methylPREDNISolone SOD SUCCI 125 MG/2 ML VIAL IV SCH ×2 (06:14→13:14)
[2023-02-08] MEDS: KETOROLAC 15 MG/ML 1 ML VIAL IVP SCH ×2 (06:14→13:15)
[2023-02-08] MEDS: INSULIN ASPART (NovoLOG) 100 UNIT/ML VIAL SQ SCH ×4 (06:20→13:14)
[2023-02-08] MEDS: BUDESONIDE 1 MG/2 ML NEBU INHALATION SCH (08:01)
[2023-02-08] MEDS: IPRATROPIUM-ALBUTEROL 3 ML NEB INHALATION SCH ×3 (08:01→15:11)
[2023-02-08] MEDS: FORMOTEROL FUMARATE 20 MCG/2 ML NEBU INHALATION SCH (08:01)
[2023-02-08 08:05] VITALS: BP 170/97; RESP 18; TEMP 97.6
[2023-02-08] MEDS: guaiFENesin 600 MG TABLET.ER PO SCH (09:27)
[2023-02-08] MEDS: PARoxetine 10 MG TAB PO SCH (09:27)
[2023-02-08] MEDS: LOSARTAN 50 MG TAB PO SCH (09:27)
[2023-02-08] MEDS: ENOXAPARIN 40 MG/0.4 ML SYRINGE SQ SCH (09:27)
[2023-02-08 12:08] VITALS: PULSE 88
[2023-02-08 12:48] LABS: Glucose,Whole Blood 386 mg/dL (70-110)
--- NOTE | 2023-02-08 13:58 | P.DS ---
Providers Date of admission: 02/05/23 11:24 Expected date of discharge: 02/08/23 Attending physician: Carlos Garner MD Consults: 02/05/23 11:29 Consult Physician Routine Consulting Provider: Sina Kendall Consult Reason/Comments: dyspnea and bronchospasm Do you want consulting provider notified?: Yes Primary care physician: Eb Robles Hospital Course: Discharge Diagnosis: Acute exacerbation of chronic mild intermittent bronchial asthma Acute hypoxemic respiratory failure secondary to above Nicotine dependence, recommend smoking cessation Morbid obesity with BMI 57.4 kg/m Dyslipidemia Hypertension Diabetes mellitus Hospital Course: Patient is a very pleasant 52-year-old female with PMH of asthma, dyslipidemia, hypertension, and diabetes mellitus. She presented to the emergency department on 02/05/23 for worsening shortness of breath and left-sided pleuritic back pain since the previous Tuesday. Patient reports asthma flareups since being diagnosed with COVID-19 in 2020. She attempted to use her nebulizer which did not help her symptoms. This prompted her to come to the ED. In the ED, she was noted to be tachycardic with heart rate in the 90s requiring 3 L cannula to maintain O2 saturation greater than 92%. CBC was unremarkable. Coagulation panel was negative. D-dimer 0.42. CMP showed chloride 108, creatinine of 0.47 and glucose 144. Lactic acid was negative. Troponin was negative. BNP was 77. Influenza, COVID-19 and RSV negative. EKG showed sinus rhythm with right bundle branch block, ventricular rate of 94. Chest x-ray show cardiomegaly and mild pulmonary vascular congestion. Patient is admitted for asthma exacerbation with pulmonology consultation. Patient was started on bronchodilators and IV solumedrol. She was slow to progress and Pulmonology was following. Patient has been on a room air maintaining SpO2 greater than 92% for greater than 24 hours. Medically patient is stable. At rest and ambulatory patient maintaining SpO2 greater than 92%. Patient medically stable for discharge at this time. Patient being discharged home on prednisone taper and to continue with Symbicort twice daily. Patient reports that she has rescue inhaler at home along with refill and states that she does not need a refill on nebulizer treatments. Patient instructed she will need to follow up outpatient with her PCP in 1-2 days and with pulmonology in one week as she will need pulmonary function testing completed. Patient verbalized understanding and is medically stable for discharge at this time. Physical exam: Patient seen and examined at bedside she was sitting up in the chair at bedside and free from any complaints at this time, . Vital signs reviewed and stable. General: Nontoxic, no distress and appears stated age. Derm: Skin warm and dry, normal coloration for ethnicity. Head: Atraumatic, normocephalic and symmetric. Eyes: EOMs intact, no lid lag, and anicteric sclera Mouth: no lip lesions, mucus membranes moist Cardiovascular: regular rate and rhythm with normal S1S2, no murmur, positive posterior tibial pulses bilaterally, and cap refill < 2 seconds. Lungs: Respirations even, regular, and unlabored on room air. Lungs with soft upper expiratory wheezes , no rhonchi, no rales, no crackles and no accessory muscle usage. Abdominal: soft, nontender to palpation, no guarding, no appreciable organomegaly Ext: ROM intact. No gross muscle atrophy, no edema, no contractures Neuro: Speech clear, face symmetrical and CN II-XII grossly intact with no noted focal neuro deficits Psych: Alert and oriented to person, place, time, and situation. Appropriate and pleasant affect. A total of 31 minutes of time were spent preparing this complex discharge summary. Pt was discharged on 02/08/23 11:23 AM Patient was seen independently by Nurse Practitioner. This document was prepared using [employer] dictation software. Please allow for errors in computer security specialist while rare they do occur. Matt Echavarria NP rendered care for this patient independently, reviewed the findings and plan as documented in the note above. I did not physically speak with or examine the patient on this date. Patient Condition at Discharge: Stable Plan - Discharge Summary New Discharge Prescriptions: New predniSONE See Taper PO DIRECTED 12 Days #30 tab Continue Multivitamins, Thera [Multivitamin (formulary)] 1 tab PO DAILY Multivit-Min/Folic Acid/Biotin [Hair, Skin and Nails Softgel] 133.3 mcg PO DAILY PARoxetine HCL [Paxil] 10 mg PO DAILY Losartan Potassium 100 mg PO DAILY Dulaglutide [Trulicity] 3 mg SQ TH Budesonide/Formoterol Fumarate [Symbicort 160-4.5 Mcg Inhaler] 2 puff INHALATION RT-BID Albuterol Inhaler [Ventolin Hfa Inhaler] 2 puff INHALATION RT-Q4H PRN PRN Reason: Shortness Of Breath glipiZIDE XL [Glucotrol XL] 5 mg PO DAILY Albuterol Nebulized [Ventolin Nebulized] 2.5 mg INHALATION RT-Q4H PRN PRN Reason: Shortness Of Breath Dapagliflozin Propanediol [Farxiga] 10 mg PO DAILY Atorvastatin [Lipitor] 10 mg PO DAILY Cinnamon Bark [Cinnamon] 1,000 mg PO DAILY Discharge Medication List Albuterol Inhaler [Ventolin Hfa Inhaler] 2 puff INHALATION RT-Q4H PRN 02/05/23 [History] Albuterol Nebulized [Ventolin Nebulized] 2.5 mg INHALATION RT-Q4H PRN 02/05/23 [History] Atorvastatin [Lipitor] 10 mg PO DAILY 02/05/23 [History] Budesonide/Formoterol Fumarate [Symbicort 160-4.5 Mcg Inhaler] 2 puff INHALATION RT-BID 02/05/23 [History] Cinnamon Bark [Cinnamon] 1,000 mg PO DAILY 02/05/23 [History] Dapagliflozin Propanediol [Farxiga] 10 mg PO DAILY 02/05/23 [History] Dulaglutide [Trulicity] 3 mg SQ TH 02/05/23 [History] Losartan Potassium 100 mg PO DAILY 02/05/23 [History] Multivit-Min/Folic Acid/Biotin [Hair, Skin and Nails Softgel] 133.3 mcg PO DAILY 02/05/23 [History] Multivitamins, Thera [Multivitamin (formulary)] 1 tab PO DAILY 02/05/23 [History] PARoxetine HCL [Paxil] 10 mg PO DAILY 02/05/23 [History] glipiZIDE XL [Glucotrol XL] 5 mg PO DAILY 02/05/23 [History] predniSONE See Taper PO DIRECTED 12 Days #30 tab 02/08/23 [Rx] Follow up Appointment(s)/Referral(s): Eb Robles MD [Primary Care Provider] - 1-2 days Janet Galeana MD [STAFF PHYSICIAN] - 1 Week Patient Instructions/Handouts: Asthma (DC), COPD (Chronic Obstructive Pulmonary Disease) (DC), Chronic Lung Disease and Infection Prevention (DC), Pulmonary Rehabilitation (DC) Activity/Diet/Wound Care/Special Instructions: Activity: As tolerated. Take breaks as needed. Diet: Heart healthy and carb consistent diet. Avoid salts, or foods with hidden salts such as canned or boxed foods and frozen dinners. Extra salt makes your heart work harder and traps the fluid in your body for longer. Special Instructions: Take all of your medications as directed and remember to keep all of your doctor's appointments and follow-up as needed. You will need to follow up outpatient with diesel locomotive engineer for pulmonary function testing. Thank you for allowing us to participate in your care, it was truly a pleasure having you for our patient!!! Discharge Disposition: HOME SELF-CARE
--- NOTE | 2023-02-08 14:30 | P.PN ---
Subjective Progress Note Date: 02/08/23 This is a very pleasant morbidly obese female patient with a known history of mild intermittent chronic bronchial asthma, diabetes mellitus, nonsmoker. She did have COVID-19 infection back in 2020 and since that time she had had ongoing issues with occasional cough and asthma exacerbations. The past week she had developed increasing shortness of breath cough and congestion. She was seen by her PCP on Tuesday who was in the process of doing further workup including a cardiac workup. She ended up coming to the emergency room today with worsening shortness of breath chest tightness and shortness of breath. Chest x-ray reveals evidence of cardiomegaly and some mild pulmonary vascular congestion. Some possible atelectatic changes in the right base. No pleural effusion. No focal consolidation. No pneumothorax. White count 5.8. Hemoglobin 13.0. Platelets 227. D-dimer 0.42. Sodium 139. Potassium 4.1. Bicarb 26. BUN 14. Creatinine 0.47. Glucose 144. AST 25. ALT 30. Troponin negative times one. ProBNP 5077. Influenza screen negative. RSV screen negative. COVID-19 screen negative. She is seen today in consultation on the regular medical floor. Currently sitting up in bed. Awake and alert in no acute distress. She is still quite bronchospastic and wheezing. Cough initiated with deep inhalation. Continue good O2 saturations in the mid 90s on 3 L/m per nasal cannula. Afebrile. Hemodynamically stable. Initiated on DuoNeb inhalations, IV Solu- Medrol. The patient is seen today 02/06/2023 in follow-up on the regular medical floor. She is currently sitting up in a chair at the bedside. Awake and alert in no acute distress. Doing about the same today as compared to yesterday. No significant improvement. Still quite bronchospastic and wheezy. 18 in good O2 saturations in the 90s. She's afebrile. Hemodynamically stable. Continued on DuoNeb inhalations, Pulmicort and Perforomist inhalations, IV Solu-Medrol. Pro- calcitonin pending. Glucose 227. I'm evaluating this patient today 02/07/2023 in follow-up on the regular medical floor. Patient is currently resting in bed, on 2 L nasal cannula, in no acute distress. She is still bronchospastic. She continues to be maximized on bronchodilators, budesonide and formoterol inhalation, and IV Solu-Medrol. No new chest x-ray to review today. No new labs today. Procalcitonin level came back only mildly elevated at 0.14. She remains afebrile. Vital signs are stable. On 02/09/2020 3M seeing this pleasant female patient for a follow-up. Her exacerbated and for that reason she was hospitalized. Today she is feeling better and she seems to be closer baseline. No significant chest pain or pleurisy or hemoptysis. No other new complaints. Pro-calcitonin level was mildly elevated. Objective - Vital Signs Vital signs: Vital Signs Temp 97.6 F 02/08/23 07:37 Pulse 88 02/08/23 12:17 Resp 18 02/08/23 07:37 BP 170/97 02/08/23 07:37 Pulse Ox 92 L 02/08/23 07:37 FiO2 Intake & Output 02/07/23 02/08/23 02/08/23 18:59 06:59 18:59 Intake Total 118 118 Balance 118 118 Intake: Oral 118 118 Other: Voiding Method Toilet # Voids 3 2 - Exam GENERAL EXAM: Alert, morbidly obese -[place] female, comfortable in no apparent distress. HEAD: Normocephalic and atraumatic EYES: Normal reaction of pupils, equal size. NOSE: Clear with pink turbinates. THROAT: No erythema or exudates. NECK: No masses, no JVD. CHEST: No chest wall deformity. LUNGS: Equal air entry with expiratory wheezes heard throughout. no crackles, rhonchi or dullness. On 2 L nasal cannula. No conversational dyspnea or acc essory muscle use.. CVS: S1 and S2 normal with no audible murmur, regular rhythm. No extra heart so unds ABDOMEN: No hepatosplenomegaly, active bowel sounds, no guarding or rigidity. SPINE: No scoliosis or deformity SKIN: No rashes CENTRAL NERVOUS SYSTEM: No focal deficits, tone is normal in all 4 extremities. EXTREMITIES: There is no peripheral edema, clubbing, or cyanosis. Peripheral pulses are intact. - Labs CBC & Chem 7: 02/05/23 09:35 02/05/23 09:35 Labs: Abnormal Lab Results - Last 24 Hours (Table) 02/07/23 02/07/23 02/08/23 Range/Units 17:40 20:00 06:01 POC Glucose (mg/dL) 317 H 306 H 162 H (70-110) mg/dL 02/08/23 Range/Units 12:46 POC Glucose (mg/dL) 386 H (70-110) mg/dL Assessment and Plan Plan: Acute exacerbation of chronic mild intermittent bronchial asthma Acute hypoxemic respiratory failure secondary to above Lifelong nonsmoker Morbid obesity with a BMI of 57.4 kg/m Diabetes mellitus History of COVID-19 infection in 2020 Plan: 80 on discharging this patient home on Symbicort and albuterol rescue inhaler in addition to a prednisone taper. Avoid smoke exposure. Contact us back in the office if there is any worsening in her breathing.
== END 2023-02-08 15:09 | disposition home or self-care (01) | DRG 141 ==
LOC: EC 09:25 → 6NMEDSUR 11:24
PROVIDERS: ADMIT Family Medicine; ATTEND Family Medicine
DX: J45.21 Mild intermittent asthma with (acute) exacerbation (principal); J96.01 Acute respiratory failure with hypoxia; Z68.43 Body mass index [BMI] 50.0-59.9, adult; I11.9 Hypertensive heart disease without heart failure; E11.65 Type 2 diabetes mellitus with hyperglycemia; E66.01 Morbid (severe) obesity due to excess calories; E78.5 Hyperlipidemia, unspecified; R00.0 Tachycardia, unspecified; Z20.822 Contact with and (suspected) exposure to COVID-19; I45.10 Unspecified right bundle-branch block; Z86.16 Personal history of COVID-19; Z88.2 Allergy status to sulfonamides; Z88.8 Allergy status to other drugs, medicaments and biological substances; Z79.899 Other long term (current) drug therapy; Z79.85 Long-term (current) use of injectable non-insulin antidiabetic drugs; Z79.84 Long term (current) use of oral hypoglycemic drugs; Z79.51 Long term (current) use of inhaled steroids; Z91.018 Allergy to other foods; Z28.311 Partially vaccinated for COVID-19
CPT/HCPCS: 36415; 71046; 80053; 83605; 83880; 84145; 84484; 85025; 85379; 85610; 85730; 87636; 93005; 94640; 94760; 96374; 96375; 99285

== ENCOUNTER → 2023-12-08 | Outpatient (CLI) | payer OTHER ==
--- NOTE | 2023-12-09 19:01 | MM ---
Reason for Exam: Screening (asymptomatic). Last screening mammogram was performed 12 month(s) ago. Patient History: Menarche at age 10. First Full-Term at age 21. Left ovary removed at age 29. Hysterectomy at age 29. Postmenopausal. Patient has history of breast feeding. Maternal aunt (titi) had colorectal cancer. Maternal aunt (titi) had breast cancer. Maternal aunt (titi) had breast cancer. Risk Values: Opal 5 year model risk: 1.2%. NCI Lifetime model risk: 8.3%. Prior Study Comparison: 11/26/2020 Bilateral MG 3D screening mammo w/cad, [facility]. 12/10/2021 Bilateral MG 3D screening mammo w/cad, [facility]. 11/24/2022 Bilateral MG 3D screening mammo w/cad, [facility]. Tissue Density: There are scattered fibroglandular densities. Findings: Analyzed By CAD. There is no suspicious group of microcalcifications or new suspicious mass in either breast. Overall Assessment: Negative, BI-RAD 1 Management: Screening Mammogram of both breasts in 1 year. . Patient should continue monthly self-breast exams. A clinical breast exam by your physician is recommended on an annual basis. This exam should not preclude additional follow-up of suspicious palpable abnormalities. Note on Opal scores and lifetime risk: 1. A Opal score greater than 3% is considered moderate risk. If this is the case, consider specialist referral to assess eligibility for a risk reducing agent. 2. If overall lifetime risk for the development of breast cancer is 20% or higher, the patient may qualify for future screening with alternating mammogram and breast MRI. Electronically signed and approved by: Jose Curtis M.D. Radiologist
== END | disposition home or self-care (01) ==
LOC: RADMAMWWP 11:25
PROVIDERS: ATTEND Family Medicine
DX: Z12.31 Encounter for screening mammogram for malignant neoplasm of breast (principal); Z78.0 Asymptomatic menopausal state; Z80.3 Family history of malignant neoplasm of breast
CPT/HCPCS: 77067